=== PATIENT | female | born 1965 | race Caucasian/White ===

== ENCOUNTER → 2019-09-07 | Outpatient (CLI) | payer BC ==
--- NOTE | 2019-09-10 10:10 | MM ---
Reason for exam: screening (asymptomatic). Last mammogram was performed 1 year and 2 months ago. History: Patient is postmenopausal and is nulliparous. Physical Findings: A clinical breast exam by your physician is recommended on an annual basis and results should be correlated with mammographic findings. MG Screening Mammo w CAD Bilateral CC and MLO view(s) were taken. Prior study comparison: June 29, 2018, mammogram. April 21, 2017, mammogram. December 21, 2013, bilateral MG screening mammo w CAD. December 08, 2012, bilateral digital screening mammo w/CAD. The breast tissue is almost entirely fat. No significant changes when compared with prior studies. ASSESSMENT: Benign, BI-RAD 2 RECOMMENDATION: Routine screening mammogram of both breasts in 1 year.
== END | disposition home or self-care (01) ==
LOC: RADMAMWWP 07:48
PROVIDERS: ATTEND Internal Medicine
DX: Z12.31 Encounter for screening mammogram for malignant neoplasm of breast (principal)
CPT/HCPCS: 77067

== ENCOUNTER → 2019-09-17 | Outpatient (CLI) | payer BC ==
[2019-09-17 07:41] LABS: Basophils % (A) 1 %; Eosinophils % (A) 1 %; HGB 13.9 gm/dL (11.4-16.0); Lymphocytes # (A) 1.6 k/uL (1.0-4.8); Lymphocytes % (A) 36 %; MCH 30.2 pg (25.0-35.0); MCHC 31.6 g/dL (31.0-37.0); MCV 95.6 fL (80.0-100.0); Mean Platelet Volume 7.5; Monocytes # (A) 0.2 k/uL (0-1.0); Monocytes % (A) 4 %; Neutrophils # (A) 2.5 k/uL (1.3-7.7); Neutrophils % (A) 56 %; Platelet Count 132 k/uL (150-450); RDW 13.9 % (11.5-15.5); WBC 4.4 k/uL (3.8-10.6)
[2019-09-17 13:29] LABS: African American GFR (CKD) 113.8 (60.0-200.0); Albumin 4.3 g/dL (3.80-4.90); Albumin/Globulin Ratio 1.48 (1.60-3.17); BUN/Creat Ratio 28.57 Ratio (12.00-20.00); Calcium 9.7 mg/dL (8.7-10.3); Chol/HDL Ratio 2.78; Globulin 2.9 g/dL (1.6-3.3); LDL Cholesterol,Calculated 58.2 mg/dL (0.0-131.0); Non-African American GFR(CKD) 98.2 (60.0-200.0); Potassium 4.3 mmol/L (3.5-5.5); Total Bilirubin 0.6 mg/dL (0.3-1.2); Total Protein 7.2 g/dL (6.2-8.2); VLDL Calculation 28.8 mg/dL (5.00-40.00)
== END | disposition home or self-care (01) ==
LOC: LABWHC1 07:02
PROVIDERS: ATTEND Internal Medicine
DX: E78.2 Mixed hyperlipidemia (principal); I10 Essential (primary) hypertension; E11.65 Type 2 diabetes mellitus with hyperglycemia
CPT/HCPCS: 36415; 80053; 80061; 83036; 84443; 85025

== ENCOUNTER → 2019-12-19 | Outpatient (CLI) | payer BC | END | disposition home or self-care (01) | LOC: LABWHC1 15:42 | PROVIDERS: ATTEND Internal Medicine | DX: Z20.828 Contact with and (suspected) exposure to other viral communicable diseases (principal) | CPT/HCPCS: U0003; C9803 ==

== ENCOUNTER → 2020-04-28 | Outpatient (CLI) | payer OTHER ==
[2020-04-28 10:34] LABS: Basophils # (A) 0.01 X 10*3/uL (0.00-0.10); Basophils % (A) 0.3 %; Eosinophils # (A) 0.02 X 10*3/uL (0.04-0.35); Eosinophils % (A) 0.5 %; HCT 38.3 % (37.2-46.3); HGB 12.5 g/dL (12.0-15.0); Lymphocytes # (A) 1.25 X 10*3/uL (0.90-5.00); Lymphocytes % (A) 32.7 %; MCH 30.9 pg (27.0-32.0); MCHC 32.6 g/dL (32.0-37.0); MCV 94.8 fL (80.0-97.0); Monocytes # (A) 0.33 X 10*3/uL (0.20-1.00); Monocytes % (A) 8.6 %; Neutrophils # (A) 2.21 X 10*3/uL (1.80-7.70); Neutrophils % (A) 57.9 %; Platelet Count 134 X 10*3/uL (140-440); RBC 4.04 X 10*6/uL (4.10-5.20); RDW 13.3 % (11.5-14.5); WBC 3.82 X 10*3/uL (4.50-10.00)
[2020-04-28 11:00] LABS: African American GFR (CKD) 113.8 (60.0-200.0); Albumin 4.2 g/dL (3.80-4.90); Albumin/Globulin Ratio 1.68 (1.60-3.17); Anion Gap 6.3 mmol/L (4.00-12.00); Calcium 9.3 mg/dL (8.7-10.3); Carbon Dioxide 26.7 mmol/L (21.6-31.8); Chol/HDL Ratio 2.93; Globulin 2.5 g/dL (1.6-3.3); LDL Cholesterol,Calculated 37.2 mg/dL (0.0-131.0); Non-African American GFR(CKD) 98.2 (60.0-200.0); Potassium 4.3 mmol/L (3.5-5.5); Total Bilirubin 0.6 mg/dL (0.3-1.2); Total Protein 6.7 g/dL (6.2-8.2); VLDL Calculation 43.8 mg/dL (5.00-40.00)
[2020-04-28 16:25] LABS: Urine Creatinine 232.6 mg/dL
== END | disposition home or self-care (01) ==
LOC: LABWHC1 07:01
PROVIDERS: ATTEND Internal Medicine
DX: Z00.00 Encounter for general adult medical examination without abnormal findings (principal); E11.65 Type 2 diabetes mellitus with hyperglycemia; E78.2 Mixed hyperlipidemia; I21.19 ST elevation (STEMI) myocardial infarction involving other coronary artery of inferior wall
CPT/HCPCS: 36415; 80053; 80061; 82043; 82570; 83036; 84443; 84484; 85025

== ENCOUNTER → 2020-05-09 | Outpatient (CLI) | payer OTHER ==
[~2020-05-09] MED LIST: REGADENOSON 0.4 MG/5 ML SYRINGE IV PRN
--- NOTE | 2020-05-09 12:28 | NM ---
EXAMINATION TYPE: NM stress lexiscan cardiolite DATE OF EXAM: 05/09/2020 COMPARISON: NONE HISTORY: Inferior myocardial infarction per order. Abnormal EKG. History of diabetes and hypercholest erolemia. TECHNIQUE: After the intravenous administration of 10.5 mCi Tc 99m Sestamibi - Cardiolite resting SP ECT images acquired 45 minutes post injection. The patient received 0.4mg Lexiscan, 26.3 mCi Tc 99m Sestamibi - Stress images obtained [address] injection FINDINGS: Review of stress and rest SPECT images demonstrates poor uptake involving the anterior left ventricul ar wall on stress and rest images suspicious for old infarct with some septal wall extension. Improv ed radiotracer uptake is best seen in the inferior left ventricular wall. Gated analysis shows satisf actory wall motion with an estimated left ventricular ejection fraction of 67 %. IMPRESSION: Possible old anterior left ventricular wall infarct extending into septum. No reversible ischemia.
--- NOTE | 2020-05-09 17:46 | P.STRESS ---
- Stress Test Note Stress Test Results/Findings: Exam Performed: NM stress lexiscan cardiolite Exam Date: 05/09/20 Reason for Exam: ABN ECG Height: 5 ft 6 in Weight: 150 kg Protocol: LEXISCAN CARDIOLITE Stage: NA Duration of Exercise: NA Resting Heart Rate: 91 Resting Blood Pressure: 116/73 Maximum Achieved Heart Rate: 108 Maximum Achieved Blood Pressure: 136/58 85% PMHR: 141 100% PMHR: 166 METS: NA Technologist Comment: Stress Test Results/Findings: At baseline EKG showed normal sinus rhythm, normal axis, minimal 0.[address] elevation in 2, 3, aVF, V4 through V6 consistent with J-point elevation. Patient recieved IV infusion of Lexiscan 0.4mg and at peak infusion EKG showed no significant change from baseline. Conclusions: 1. Normal EKG response to Lexiscan infusion 2. Nuclear imaging to be reported separately.
== END ==
LOC: RADNMMAIN 07:50
PROVIDERS: ATTEND Internal Medicine
DX: R94.31 Abnormal electrocardiogram [ECG] [EKG] (principal); E11.9 Type 2 diabetes mellitus without complications; E78.00 Pure hypercholesterolemia, unspecified
CPT/HCPCS: 93017; 78452; A9500; J2785

== ENCOUNTER → 2021-01-10 | Outpatient (CLI) | payer OTHER ==
[2021-01-10 11:28] LABS: Basophils # (A) 0 X 10*3/uL (0.00-0.10); Basophils % (A) 0 %; Eosinophils # (A) 0.03 X 10*3/uL (0.04-0.35); HCT 41.2 % (37.2-46.3); HGB 13.4 g/dL (12.0-15.0); Lymphocytes # (A) 1.01 X 10*3/uL (0.90-5.00); Lymphocytes % (A) 34.2 %; MCH 30.9 pg (27.0-32.0); MCHC 32.5 g/dL (32.0-37.0); MCV 95.2 fL (80.0-97.0); Monocytes # (A) 0.17 X 10*3/uL (0.20-1.00); Monocytes % (A) 5.8 %; Neutrophils # (A) 1.74 X 10*3/uL (1.80-7.70); Platelet Count 132 X 10*3/uL (140-440); RBC 4.33 X 10*6/uL (4.10-5.20); RDW 13.5 % (11.5-14.5); WBC 2.95 X 10*3/uL (4.50-10.00)
[2021-01-10 12:10] LABS: ALT 34 U/L (8-44); AST 46 U/L (13-35); African American GFR (CKD) 117.1 (60.0-200.0); Albumin 4.1 g/dL (3.8-4.9); Albumin/Globulin Ratio 1.41 (1.60-3.17); Alkaline Phosphatase 52 U/L (41-126); BUN/Creat Ratio 22.58 Ratio (12.00-20.00); Blood Urea Nitrogen 14.2 mg/dL (9.0-27.0); Calcium 9.2 mg/dL (8.7-10.3); Carbon Dioxide 20.9 mmol/L (21.6-31.8); Chloride 102 mmol/L (96-109); Chol/HDL Ratio 2.96 Ratio; Globulin 2.9 g/dL (1.6-3.3); Glucose 216 mg/dL (70-110); LDL Cholesterol,Calculated 48.9 mg/dL (0.0-131.0); Magnesium 1.7 mg/dL (1.5-2.4); Potassium 4.1 mmol/L (3.5-5.5); Sodium 136 mmol/L (135-145); Total Protein 6.9 g/dL (6.2-8.2)
[2021-01-10 21:34] LABS: Microalbumin Creatinine Ratio <30 mg/g Creat (0-30)
== END | disposition home or self-care (01) ==
LOC: LABWHC1 08:18
PROVIDERS: ATTEND Internal Medicine
DX: I10 Essential (primary) hypertension (principal); E11.65 Type 2 diabetes mellitus with hyperglycemia; E78.2 Mixed hyperlipidemia
CPT/HCPCS: 36415; 80053; 80061; 82043; 82570; 83036; 83735; 84443; 85025

== ENCOUNTER → 2021-01-23 | Outpatient (CLI) | payer OTHER ==
--- NOTE | 2021-01-26 12:15 | MM ---
Reason for exam: screening (asymptomatic). Last mammogram was performed 1 year and 5 months ago. History: Patient is postmenopausal and is nulliparous. Physical Findings: A clinical breast exam by your physician is recommended on an annual basis and results should be correlated with mammographic findings. MG 3D Screening Mammo W/Cad Bilateral CC and MLO view(s) were taken. XCCL view(s) were taken of the left breast. Prior study comparison: September 07, 2019, bilateral MG screening mammo w CAD. June 29, 2018, mammogram. There are scattered fibroglandular densities. There is no discrete abnormality. ASSESSMENT: Negative, BI-RAD 1 RECOMMENDATION: Routine screening mammogram of both breasts in 1 year.
== END | disposition home or self-care (01) ==
LOC: RADMAMWWP 15:06
PROVIDERS: ATTEND Internal Medicine
DX: Z12.31 Encounter for screening mammogram for malignant neoplasm of breast (principal); Z78.0 Asymptomatic menopausal state
CPT/HCPCS: 77063; 77067

== ENCOUNTER → 2021-05-23 | Outpatient (CLI) | payer OTHER ==
[2021-05-23 11:57] LABS: Basophils # (A) 0.01 X 10*3/uL (0.00-0.10); Basophils % (A) 0.3 %; Eosinophils # (A) 0.03 X 10*3/uL (0.04-0.35); Eosinophils % (A) 0.8 %; HCT 39.9 % (37.2-46.3); HGB 12.7 g/dL (12.0-15.0); Immature Grans, Automated 0.3 %; Lymphocytes # (A) 1.12 X 10*3/uL (0.90-5.00); Lymphocytes % (A) 30.9 %; MCH 31.1 pg (27.0-32.0); MCHC 31.8 g/dL (32.0-37.0); MCV 97.6 fL (80.0-97.0); Mean Platelet Volume 9.9 fL (9.5-12.2); Monocytes # (A) 0.24 X 10*3/uL (0.20-1.00); Monocytes % (A) 6.6 %; NRBC Per 100 WBC 0 /100 WBCS (0.0-0.0); Neutrophils # (A) 2.22 X 10*3/uL (1.80-7.70); Neutrophils % (A) 61.1 %; Platelet Count 102 X 10*3/uL (140-440); RBC 4.09 X 10*6/uL (4.10-5.20); RDW 13.3 % (11.5-14.5); WBC 3.63 X 10*3/uL (4.50-10.00)
[2021-05-23 14:42] LABS: ALT 31 U/L (8-44); AST 36 U/L (13-35); African American GFR (CKD) 118.1 (60.0-200.0); Albumin/Globulin Ratio 1.44 (1.60-3.17); Alkaline Phosphatase 41 U/L (41-126); BUN/Creat Ratio 26.43 Ratio (12.00-20.00); Blood Urea Nitrogen 16.2 mg/dL (9.0-27.0); Calcium 8.9 mg/dL (8.7-10.3); Carbon Dioxide 16.4 mmol/L (20.0-27.5); Chloride 99 mmol/L (96-109); Chol/HDL Ratio 2.93 Ratio; Ferritin 67.9 ng/mL (10.0-291.0); Globulin 2.8 g/dL (1.6-3.3); Glucose 182 mg/dL (70-110); Iron 65 ug/dL (50-170); LDL Cholesterol,Calculated 55.3 mg/dL (0.0-131.0); Magnesium 1.9 mg/dL (1.5-2.4); Non-African American GFR(CKD) 101.9 (60.0-200.0); Sodium 131 mmol/L (135-145); Total Iron Binding Capacity 393 ug/dL (228-460); Total Protein 6.8 g/dL (6.2-8.2)
[2021-05-24 07:48] LABS: Appearance,Urine Turbid (Clear); Bacteria,Urine 1+ /HPF (None Seen); Bilirubin,Urine Negative (Negative); Blood,Urine Negative (Negative); Calcium Oxalate Crystals,Urine Present /LPF (None Seen); Color,Urine Dark Yellow (Yellow); Ketones,Urine Trace mg/dL (Negative); Nitrite,Urine Negative (Negative); Specific Gravity,Urine 1.033 (1.001-1.030)
== END | disposition home or self-care (01) ==
LOC: LABWHC1 08:00
PROVIDERS: ATTEND Internal Medicine
DX: I10 Essential (primary) hypertension (principal); E78.2 Mixed hyperlipidemia; E11.65 Type 2 diabetes mellitus with hyperglycemia; D50.0 Iron deficiency anemia secondary to blood loss (chronic)
CPT/HCPCS: 36415; 80053; 80061; 81001; 82043; 82570; 82607; 82728; 82746; 83036; 83540; 83550; 83735; 84439; 84443; 85025

== ENCOUNTER → 2021-10-24 | Outpatient (CLI) | payer OTHER ==
[2021-10-24 11:47] LABS: Basophils # (A) 0.01 X 10*3/uL (0.00-0.10); Basophils % (A) 0.3 %; Eosinophils # (A) 0.02 X 10*3/uL (0.04-0.35); Eosinophils % (A) 0.6 %; HCT 39.5 % (37.2-46.3); Immature Grans, Automated 0 %; Lymphocytes # (A) 1.29 X 10*3/uL (0.90-5.00); Lymphocytes % (A) 35.5 %; MCH 31.3 pg (27.0-32.0); MCHC 32.9 g/dL (32.0-37.0); MCV 95.2 fL (80.0-97.0); Mean Platelet Volume 9.9 fL (9.5-12.2); Monocytes # (A) 0.21 X 10*3/uL (0.20-1.00); Monocytes % (A) 5.8 %; NRBC Per 100 WBC 0 /100 WBCS (0.0-0.0); Neutrophils % (A) 57.8 %; Platelet Count 111 X 10*3/uL (140-440); RBC 4.15 X 10*6/uL (4.10-5.20); RDW 13.2 % (11.5-14.5); WBC 3.63 X 10*3/uL (4.50-10.00)
[2021-10-24 12:00] LABS: ALT 35 U/L (8-44); AST 38 U/L (13-35); African American GFR (CKD) 119.9 (60.0-200.0); Albumin 4.3 g/dL (3.8-4.9); Albumin/Globulin Ratio 1.57 (1.60-3.17); Alkaline Phosphatase 45 U/L (41-126); BUN/Creat Ratio 20.59 Ratio (12.00-20.00); Blood Urea Nitrogen 11.8 mg/dL (9.0-27.0); Calcium 9.5 mg/dL (8.7-10.3); Carbon Dioxide 23.9 mmol/L (20.0-27.5); Chloride 105 mmol/L (96-109); Globulin 2.8 g/dL (1.6-3.3); Glucose 89 mg/dL (70-110); Magnesium 1.9 mg/dL (1.5-2.4); Non-African American GFR(CKD) 103.5 (60.0-200.0); Potassium 4.1 mmol/L (3.5-5.5); Sodium 141 mmol/L (135-145); Total Protein 7.1 g/dL (6.2-8.2)
[2021-10-24 12:01] LABS: Chol/HDL Ratio 2.75 Ratio; LDL Cholesterol,Calculated 50.9 mg/dL (0.0-131.0)
[2021-10-24 12:43] LABS: Microalbumin Creatinine Ratio <30 mg/g Creat (0-30); Urine Creatinine 58.8 mg/dL (28.0-217.0)
== END | disposition home or self-care (01) ==
LOC: LABWHC1 08:21
PROVIDERS: ATTEND Internal Medicine
DX: I10 Essential (primary) hypertension (principal); E11.9 Type 2 diabetes mellitus without complications; E78.2 Mixed hyperlipidemia
CPT/HCPCS: 36415; 80053; 80061; 82043; 82570; 83036; 83735; 84439; 84443; 85025

== ENCOUNTER 2021-11-24 06:56 | Day surgery (SDC) | payer OTHER ==
[2021-11-20 12:26] VITALS: BMI 47.0
[~2021-11-24 06:56] MED LIST changes: +LACTATED RINGERS 1,000 ML IV SCH; -REGADENOSON 0.4 MG/5 ML SYRINGE IV PRN
[2021-11-24] MEDS ORDERED: ONDANSETRON 4 MG/2 ML VIAL IVP PRN (07:00)
[2021-11-24 07:22] VITALS: TEMP 98.7
[2021-11-24 07:38] LABS: Glucose,Whole Blood 303 mg/dL (70-110)
[2021-11-24] MEDS ORDERED: LACTATED RINGERS 1,000 ML IV ONE (07:39)
[2021-11-24] MEDS ORDERED: INSULIN ASPART (NovoLOG) 100 UNIT/ML VIAL SQ ONE (07:49)
[2021-11-24] MEDS ORDERED: MIDAZOLAM 2 MG/2 ML VIAL IVP ONE (07:49)
[2021-11-24] MEDS ORDERED: LIDOCAINE 2% INJ 20 MG/ML (2 ML VIAL) ONE (08:06)
[2021-11-24] MEDS ORDERED: PROPOFOL 10 MG/ML 20 ML VIAL IV ONE (08:06)
--- NOTE | 2021-11-24 08:10 | P.GSHP ---
History of Present Illness H&P Date: 11/24/21 Chief Complaint: Colon polyps 56-year-old female here today for colonoscopy. Last colonoscopy 3 years ago. No bowel complaints. His diverticulitis. Patient had a previous sigmoid resection for diverticulitis. Past Medical History Past Medical History: Diabetes Mellitus, Supraventricular Tachycardia (SVT) Additional Past Medical History / Comment(s): diverticulitis, pancreatitis, lisinopril for kidney protection History of Any Multi-Drug Resistant Organisms: None Reported Past Surgical History: Back Surgery, Bowel Resection, Cholecystectomy Additional Past Surgical History / Comment(s): temporary colostomy with reversal Past Anesthesia/Blood Transfusion Reactions: No Reported Reaction Past Psychological History: No Psychological Hx Reported Smoking Status: Never smoker Past Alcohol Use History: None Reported Past Drug Use History: None Reported Medications and Allergies Home Medications Medication Instructions Recorded Confirmed Type Pantoprazole Sodium [Protonix] 40 mg PO BID 09/10/13 11/24/21 History lisinopriL [Zestril] 20 mg PO DAILY 09/10/13 11/24/21 History metFORMIN HCL [Glucophage] 1,000 mg PO BID 09/10/13 11/24/21 History ALPRAZolam [Xanax] 0.5 mg PO DAILY 12/26/13 11/20/21 History Acetaminophen [Tylenol Extra 1,500 mg PO BID 11/20/21 11/24/21 History Strength] Ascorbic Acid [Vitamin C] 500 mg PO DAILY 11/20/21 11/24/21 History Cetirizine HCl [Zyrtec] 10 mg PO DAILY 11/20/21 11/24/21 History Insulin Regular, Human [humulin R 60 unit SQ W/SUPPER 11/20/21 11/24/21 History U-500 Kwikpen] Insulin Regular, Human [humulin R 140 unit SQ QAM 11/20/21 11/24/21 History U-500 Kwikpen] Magnesium 400 mg PO DAILY 11/20/21 11/24/21 History Metoprolol Tartrate [Lopressor] 50 mg PO DAILY 11/20/21 11/24/21 History Multivitamins, Thera [Multivitamin 1 tab PO DAILY 11/20/21 11/24/21 History (formulary)] Rosuvastatin [Crestor] 20 mg PO DAILY 11/20/21 11/24/21 History Ubidecarenone [Co Q-10] 200 mg PO DAILY 11/20/21 11/24/21 History Allergies Allergy/AdvReac Type Severity Reaction Status Date / Time adhesive Allergy Rash/Hives Verified 11/24/21 07:22 methylprednisolone Allergy Rash/Hives Verified 11/24/21 07:22 [From Medrol] Surgical - Exam Vital Signs Temp Pulse Resp BP Pulse Ox 98.7 F 127 H 16 126/83 97 11/24/21 07:20 11/24/21 07:20 11/24/21 07:20 11/24/21 07:20 11/24/21 07:20 Physical exam: General: Well-developed, well-nourished HEENT: Normocephalic, sclerae nonicteric Abdomen: Nontender, nondistended Extremities: No edema Neuro: Alert and oriented Results - Labs Abnormal Lab Results - Last 24 Hours (Table) 11/24/21 Range/Units 07:37 POC Glucose (mg/dL) 303 H (70-110) mg/dL Assessment and Plan (1) Colon polyp Narrative/Plan: Will proceed with colonoscopy at this time Current Visit: Yes Status: Acute Code(s): K63.5 - POLYP OF COLON SNOMED Code(s): 12150125
--- NOTE | 2021-11-24 08:21 | P.PCN ---
Date of Procedure: 11/24/21 Procedure(s) Performed: PREOPERATIVE DIAGNOSIS: History of colon polyps, family history of colon cancer POSTOPERATIVE DIAGNOSIS: Poor prep, transverse colon polyp 2 PROCEDURE: Colonoscopy with snare polypectomy ANESTHESIA: MAC SURGEON: Fercho Luna M.D. SPECIMENS: Polyps ENDOSCOPIC PROCEDURE: The patient was placed on the endoscopy table in the left decubitus position. The Olympus colonoscope was inserted into the anus and passed under direct visualization to the base of the cecum. The appendiceal orifice was visualized. From that point the scope was slowly withdrawn inspecting all surfaces carefully. There were no neoplastic inflammatory or polypoid lesions throughout the cecum or ascending colon. In the transverse colon 2 small polyps were removed using the snare cautery technique. The remainder the transverse descending and rectum appeared normal. The previous anastomosis was patent. Again there was noted to be a bridge of mucosa splitting the lumen of the rectum from the previous sigmoid resection. The patient's prep was extremely poor and most mucosal surfaces could not be visualized. Digital rectal examination was normal. The patient was taken to the recovery room in stable condition per anesthesia guidelines. RECOMMENDATIONS: Await biopsy results. Repeat colonoscopy 6-12 months.
[2021-11-24 08:46] VITALS: RESP 18
[2021-11-24 09:12] VITALS: BP 129/81; PULSE 106
== END 2021-11-24 09:12 | disposition home or self-care (01) ==
LOC: ORWHC2ENDO 06:56
PROVIDERS: ATTEND Surgery
DX: Z12.11 Encounter for screening for malignant neoplasm of colon (principal); D12.3 Benign neoplasm of transverse colon; K57.32 Diverticulitis of large intestine without perforation or abscess without bleeding; E11.9 Type 2 diabetes mellitus without complications; I47.1 Supraventricular tachycardia; Z80.0 Family history of malignant neoplasm of digestive organs; Z86.010 Personal history of colon polyps; Z90.49 Acquired absence of other specified parts of digestive tract; Z98.890 Other specified postprocedural states; Z79.1 Long term (current) use of non-steroidal anti-inflammatories (NSAID); Z79.84 Long term (current) use of oral hypoglycemic drugs; Z79.4 Long term (current) use of insulin; Z88.8 Allergy status to other drugs, medicaments and biological substances; Z79.899 Other long term (current) drug therapy
CPT/HCPCS: 88305; 45385; J2250; J2704; J2001

== ENCOUNTER 2021-12-14 15:33 | Emergency (ER) | payer OTHER ==
[2021-12-14 15:52] VITALS: TEMP 98.2
[2021-12-14] MEDS ORDERED: HYDROmorphone 1 MG/ML 1 ML SYRINGE IM STA (16:16)
--- NOTE | 2021-12-14 16:18 | ED ---
General Adult HPI - General Chief complaint: Fall Stated complaint: rt leg/hip pain - fall Time Seen by Provider: 12/14/21 15:57 Source: patient Mode of arrival: wheelchair Limitations: no limitations - History of Present Illness Initial comments: Dictation was produced using [employer] dictation software. please excuse any grammatical, word or spelling errors. Chief Complaint: 56-year-old female presents emergency department for right hip pain. History of Present Illness: She is a 56-year-old female she was taking a shower this morning she bent over and stood up really quickly causing her to get dizzy. She fell sideways landing on her right hip. Patient states that she has extreme pain to her right hip. She was able to stand and bear some weight though with significant pain. Patient is noticing a bruise over her right lateral hip. Patient has no other complaints. The ROS documented in this emergency department record has been reviewed and confirmed by me. Those systems with pertinent positive or negative responses have been documented in the HPI. All other systems are other negative and/or noncontributory. PHYSICAL EXAM: General Impression: Alert and oriented x3, not in acute distress HEENT: Normocephalic atraumatic, extra-ocular movements intact, pupils equal and reactive to light bilaterally, mucous membranes moist. Cardiovascular: Heart regular rate and rhythm Chest: Able to complete full sentences, no retractions, no tachypnea Musculoskeletal: Pulses present and equal in all extremities, no peripheral edema Right lower extremity: Mild ecchymoses over the right greater trochanteric, no leg length discrepancy, neurovascularly intact in the right distal extremity Motor: no focal deficits noted Neurological: CN II-XII grossly intact, no focal motor or sensory deficits noted Skin: Intact with no visualized rashes Psych: Normal affect and mood ED course: 56-year-old female presents with right hip pain after fall. Vital signs upon arrival are within acceptable limits. X-rays unremarkable. Patient given oral analgesics. Advised follow-up with primary care doctor. Click or presentation consistent with hip contusion. - Related Data Home Medications Medication Instructions Recorded Confirmed Pantoprazole Sodium [Protonix] 40 mg PO BID 09/10/13 11/24/21 lisinopriL [Zestril] 20 mg PO DAILY 09/10/13 11/24/21 metFORMIN HCL [Glucophage] 1,000 mg PO BID 09/10/13 11/24/21 ALPRAZolam [Xanax] 0.5 mg PO DAILY 12/26/13 11/20/21 Acetaminophen [Tylenol Extra 1,500 mg PO BID 11/20/21 11/24/21 Strength] Ascorbic Acid [Vitamin C] 500 mg PO DAILY 11/20/21 11/24/21 Cetirizine HCl [Zyrtec] 10 mg PO DAILY 11/20/21 11/24/21 Insulin Regular, Human [humulin R 60 unit SQ W/SUPPER 11/20/21 11/24/21 U-500 Kwikpen] Insulin Regular, Human [humulin R 140 unit SQ QAM 11/20/21 11/24/21 U-500 Kwikpen] Magnesium 400 mg PO DAILY 11/20/21 11/24/21 Metoprolol Tartrate [Lopressor] 50 mg PO DAILY 11/20/21 11/24/21 Multivitamins, Thera [Multivitamin 1 tab PO DAILY 11/20/21 11/24/21 (formulary)] Rosuvastatin [Crestor] 20 mg PO DAILY 11/20/21 11/24/21 Ubidecarenone [Co Q-10] 200 mg PO DAILY 11/20/21 11/24/21 Previous Rx's Medication Instructions Recorded oxyCODONE-APAP 7.5-325MG [Percocet 1 tab PO Q6HR PRN 3 Days #12 tab 12/14/21 7.5-325 mg] Allergies Allergy/AdvReac Type Severity Reaction Status Date / Time adhesive Allergy Rash/Hives Verified 12/14/21 15:52 methylprednisolone Allergy Rash/Hives Verified 12/14/21 15:52 [From Medrol] Review of Systems ROS Statement: Those systems with pertinent positive or pertinent negative responses have been documented in the HPI. ROS Other: All systems not noted in ROS Statement are negative. Past Medical History Past Medical History: Diabetes Mellitus Additional Past Medical History / Comment(s): diverticulitis, pancreatitis History of Any Multi-Drug Resistant Organisms: None Reported Past Surgical History: Back Surgery, Cholecystectomy Additional Past Surgical History / Comment(s): temporary colostomy with reversal Past Anesthesia/Blood Transfusion Reactions: No Reported Reaction Past Psychological History: No Psychological Hx Reported Smoking Status: Never smoker Past Alcohol Use History: None Reported Past Drug Use History: None Reported General Exam Limitations: no limitations Course Vital Signs 12/14/21 15:49 Temperature 98.2 F Pulse Rate 96 Respiratory 16 Rate Blood Pressure 139/85 O2 Sat by Pulse 97 Oximetry Disposition Clinical Impression: Contusion, hip Disposition: HOME SELF-CARE Condition: Good Instructions (If sedation given, give patient instructions): Hip Contusion (ED) Prescriptions: oxyCODONE-APAP 7.5-325MG [Percocet 7.5-325 mg] 1 tab PO Q6HR PRN 3 Days #12 tab PRN Reason: Pain Is patient prescribed a controlled substance at d/c from ED?: Yes If prescribed controlled substance>3 days was MAPS reviewed?: Prescribed <3 Days Referrals: Bradley Hardin MD [Primary Care Provider] - 1-2 days Time of Disposition: 17:09
--- NOTE | 2021-12-14 16:39 | XR ---
EXAMINATION TYPE: XR Hip Complete RT DATE OF EXAM: 12/14/2021 COMPARISON: NONE HISTORY: Fall. Pain TECHNIQUE: 2 views FINDINGS: I see no fracture nor dislocation. Hip joint space is fairly normal. Sacroiliac joint is in tact. Proximal femur is intact. IMPRESSION: Negative right hip exam. No fracture.
[2021-12-14 18:13] VITALS: BP 153/78; PULSE 95; RESP 20
== END 2021-12-14 18:13 | disposition home or self-care (01) ==
LOC: EC 15:33
DX: S70.01XA Contusion of right hip, initial encounter (principal); E11.9 Type 2 diabetes mellitus without complications; Z79.84 Long term (current) use of oral hypoglycemic drugs; Z88.8 Allergy status to other drugs, medicaments and biological substances; W19.XXXA Unspecified fall, initial encounter
CPT/HCPCS: 73502; 99284; 96372; J1170

== ENCOUNTER → 2022-02-09 | Outpatient (CLI) | payer OTHER ==
--- NOTE | 2022-02-10 18:07 | MM ---
Reason for Exam: Screening (asymptomatic). Last screening mammogram was performed 12 month(s) ago. Patient History: Menarche at age 12. Patient has no children. Postmenopausal. Risk Values: Lyly 5 year model risk: 1.4%. NCI Lifetime model risk: 8.9%. Prior Study Comparison: 06/29/2018 Screening Mammogram, Unknown. 09/07/2019 Bilateral Screening Mammogram, [facility]. 01/23/2021 Bilateral Screening Mammogram, [facility]. Tissue Density: There are scattered fibroglandular densities. Findings: Analyzed By CAD. Abdomen appears symmetrical and stable. No significant interval change is evident. No suspicious groups of microcalcifications, spiculated or lobular masses, architectural distortion or other secondary signs of malignancy are mammographically apparent. Overall Assessment: Benign, BI-RAD 2 Management: Screening Mammogram of both breasts in 1 year. A negative mammogram report should not preclude additional follow up of suspicious palpable abnormalities. Patient should continue monthly self breast exam. A clinical breast exam by your physician is recommended on an annual basis and results should be correlated with mammographic findings. Electronically signed and approved by: Vipul Anne D.O. Radiologis
== END | disposition home or self-care (01) ==
LOC: RADMAMWWP 15:56
PROVIDERS: ATTEND Obstetrics & Gynecology
DX: Z12.31 Encounter for screening mammogram for malignant neoplasm of breast (principal); Z78.0 Asymptomatic menopausal state
CPT/HCPCS: 77067

== ENCOUNTER 2022-07-06 07:16 | Day surgery (SDC) | payer OTHER ==
[2022-07-02 12:09] VITALS: BMI 47.0
[~2022-07-06 07:16] MED LIST changes: +LIDOCAINE 1% (10MG/ML) FOR IV START INTRADERMA PRN
[2022-07-06 07:46] VITALS: TEMP 97.8
[2022-07-06 07:49] LABS: Glucose,Whole Blood 188 mg/dL (70-110)
[2022-07-06] MEDS ORDERED: LIDOCAINE 2% INJ 20 MG/ML (2 ML VIAL) ONE (07:52)
[2022-07-06] MEDS ORDERED: PROPOFOL 10 MG/ML 20 ML VIAL IV ONE (07:52)
--- NOTE | 2022-07-06 08:08 | P.GSHP ---
History of Present Illness H&P Date: 07/06/22 Chief Complaint: Colon cancer screening, history of polyps 66 female here for colonoscopy. Patient with history of colon polyps. Family history of colon cancer. He underwent colonoscopy last November and polyps were found. Prep was poor and short-term follow-up is advised. Past Medical History Past Medical History: Diabetes Mellitus, GERD/Reflux, Hyperlipidemia Additional Past Medical History / Comment(s): diverticulitis, pancreatitis, ON B/P RX FOR KIDNEYS, ELEVATED HR History of Any Multi-Drug Resistant Organisms: None Reported Past Surgical History: Back Surgery, Bowel Resection, Cholecystectomy Additional Past Surgical History / Comment(s): temporary colostomy with reversal. COLONOSCCOPY. LT TUBE AND OVARY REMOVED Past Anesthesia/Blood Transfusion Reactions: No Reported Reaction Smoking Status: Never smoker - Past Family History Mother Family Medical History: Cancer, Deep Vein Thrombosis (DVT) Additional Family Medical History / Comment(s): COLON. DVT POST TOTAL KNEE Medications and Allergies Home Medications Medication Instructions Recorded Confirmed Type Pantoprazole Sodium [Protonix] 40 mg PO BID 09/10/13 07/02/22 History lisinopriL [Zestril] 20 mg PO DAILY 09/10/13 07/02/22 History metFORMIN HCL [Glucophage] 1,000 mg PO BID 09/10/13 07/02/22 History ALPRAZolam [Xanax] 0.5 mg PO DAILY 12/26/13 07/02/22 History Acetaminophen [Tylenol Extra 1,500 mg PO BID 11/20/21 07/02/22 History Strength] Ascorbic Acid [Vitamin C] 500 mg PO DAILY 11/20/21 07/02/22 History Cetirizine HCl [Zyrtec] 10 mg PO DAILY 11/20/21 07/02/22 History Insulin Regular, Human [humulin R 60 unit SQ W/SUPPER 11/20/21 07/02/22 History U-500 Kwikpen] Insulin Regular, Human [humulin R 140 unit SQ QAM 11/20/21 07/02/22 History U-500 Kwikpen] Magnesium 400 mg PO DAILY 11/20/21 07/02/22 History Metoprolol Tartrate [Lopressor] 50 mg PO BID 11/20/21 07/02/22 History Multivitamins, Thera [Multivitamin 1 tab PO DAILY 11/20/21 07/02/22 History (formulary)] Rosuvastatin [Crestor] 20 mg PO W/SUPPER 11/20/21 07/02/22 History Ubidecarenone [Co Q-10] 200 mg PO DAILY 11/20/21 07/02/22 History Lidocaine 5% Patch [Lidoderm 5% 1 patch TOPICAL DAILY PRN 14 Days 05/03/22 07/02/22 Rx Patch] #14 patch Gabapentin 300 mg PO BID 07/02/22 07/02/22 History HYDROcodone/APAP 10-325MG [Sperry 1 tab PO Q6HR PRN 07/02/22 07/02/22 History 10-325] methocarbamoL [Methocarbamol] 500 mg PO BID 07/02/22 07/02/22 History Allergies Allergy/AdvReac Type Severity Reaction Status Date / Time adhesive Allergy Rash/Hives Verified 07/06/22 07:36 methylprednisolone Allergy Rash/Hives Verified 07/06/22 07:36 [From Medrol] Surgical - Exam Vital Signs Temp Pulse Resp BP Pulse Ox 97.8 F 90 18 140/68 94 L 07/06/22 07:45 07/06/22 07:45 07/06/22 07:45 07/06/22 07:45 07/06/22 07:45 Physical exam: General: Well-developed, well-nourished HEENT: Normocephalic, sclerae nonicteric Abdomen: Nontender, nondistended Extremities: No edema Neuro: Alert and oriented Results - Labs Abnormal Lab Results - Last 24 Hours (Table) 07/06/22 Range/Units 07:47 POC Glucose (mg/dL) 188 H (70-110) mg/dL Assessment and Plan (1) Colon cancer screening Narrative/Plan: Will proceed with colonoscopy at this time Current Visit: Yes Status: Acute Code(s): Z12.11 - ENCOUNTER FOR SCREENING FOR MALIGNANT NEOPLASM OF COLON SNOMED Code(s): 775869203
--- NOTE | 2022-07-06 08:10 | P.PCN ---
Date of Procedure: 07/06/22 Procedure(s) Performed: PREOPERATIVE DIAGNOSIS: Colon cancer screening with history of polyps and family history of colon cancer POSTOPERATIVE DIAGNOSIS: Ascending colon polyp PROCEDURE: Colonoscopy with snare polypectomy ANESTHESIA: MAC SURGEON: Fercho Luna M.D. SPECIMENS: Polyp ENDOSCOPIC PROCEDURE: The patient was placed on the endoscopy table in the left decubitus position. The Olympus colonoscope was inserted into the anus and passed under direct visualization to the base of the cecum. The appendiceal orifice was visualized. From that point the scope was slowly withdrawn inspecting all surfaces carefully. There were no neoplastic inflammatory or polypoid lesions throughout the cecum. In the ascending colon a small polyp was seen and removed using the snare with cautery technique. The remainder of the ascending transverse descending and rectum appeared normal. The patient's prep was again suboptimal with multiple areas of mucosa covered with thicker stool that could not be irrigated. There was no visible diverticulosis. The previous anastomosis was widely patent. There was a band of mucosa crossing the lumen at the anastomotic site. This was non-obstructive. Digital rectal examination was normal. The patient was taken to the recovery room in stable condition per [facility] guidelines. RECOMMENDATIONS: Await biopsy results. Repeat colonoscopy 1-2 years given the history of polyps and family history of colon cancer along with today's poor prep.
[2022-07-06 08:22] VITALS: RESP 16
[2022-07-06 08:28] VITALS: BP 117/76; PULSE 86
== END 2022-07-06 08:52 | disposition home or self-care (01) ==
LOC: ORWHC2ENDO 07:16
PROVIDERS: ATTEND Surgery
DX: Z12.11 Encounter for screening for malignant neoplasm of colon (principal); D12.2 Benign neoplasm of ascending colon; Z80.0 Family history of malignant neoplasm of digestive organs; Z98.0 Intestinal bypass and anastomosis status; E11.9 Type 2 diabetes mellitus without complications; E78.5 Hyperlipidemia, unspecified; K21.9 Gastro-esophageal reflux disease without esophagitis; F41.9 Anxiety disorder, unspecified; Z90.49 Acquired absence of other specified parts of digestive tract; Z79.84 Long term (current) use of oral hypoglycemic drugs; Z79.899 Other long term (current) drug therapy; Z79.4 Long term (current) use of insulin; Z91.048 Other nonmedicinal substance allergy status; Z88.8 Allergy status to other drugs, medicaments and biological substances
CPT/HCPCS: 88305; 45385; J2704; J2001

== ENCOUNTER → 2022-07-10 | Outpatient (CLI) | payer OTHER ==
[2022-07-10 13:27] LABS: Basophils # (A) 0.01 X 10*3/uL (0.00-0.10); Basophils % (A) 0.3 %; Eosinophils # (A) 0.02 X 10*3/uL (0.04-0.35); Eosinophils % (A) 0.6 %; HGB 12.9 g/dL (12.0-15.0); Immature Grans, Automated 0 %; Lymphocytes # (A) 1.15 X 10*3/uL (0.90-5.00); Lymphocytes % (A) 33.6 %; MCH 30.4 pg (27.0-32.0); MCHC 31.5 g/dL (32.0-37.0); MCV 96.5 fL (80.0-97.0); Mean Platelet Volume 10.5 fL (9.5-12.2); Monocytes # (A) 0.19 X 10*3/uL (0.20-1.00); Monocytes % (A) 5.6 %; NRBC Per 100 WBC 0 /100 WBCS (0.0-0.0); Neutrophils # (A) 2.05 X 10*3/uL (1.80-7.70); Neutrophils % (A) 59.9 %; Platelet Count 111 X 10*3/uL (140-440); RBC 4.25 X 10*6/uL (4.10-5.20); RDW 13.6 % (11.5-14.5); WBC 3.42 X 10*3/uL (4.50-10.00)
[2022-07-10 13:43] LABS: ALT 26 U/L (8-44); AST 31 U/L (13-35); African American GFR (CKD) 118.1 (60.0-200.0); Albumin 4.2 g/dL (3.8-4.9); Albumin/Globulin Ratio 1.62 (1.60-3.17); Alkaline Phosphatase 43 U/L (41-126); BUN/Creat Ratio 23.67 Ratio (12.00-20.00); Blood Urea Nitrogen 14.2 mg/dL (9.0-27.0); Calcium 9.5 mg/dL (8.7-10.3); Carbon Dioxide 23.3 mmol/L (20.0-27.5); Chloride 100 mmol/L (96-109); Chol/HDL Ratio 2.55 Ratio; Globulin 2.6 g/dL (1.6-3.3); Glucose 213 mg/dL (70-110); Magnesium 1.7 mg/dL (1.5-2.4); Non-African American GFR(CKD) 101.9 (60.0-200.0); Potassium 4.1 mmol/L (3.5-5.5); Sodium 136 mmol/L (135-145); Total Protein 6.8 g/dL (6.2-8.2); Uric Acid 3.3 mg/dL (2.9-7.7)
[2022-07-10 15:45] LABS: Appearance,Urine Clear (Clear); Bacteria,Urine None Seen /HPF (None Seen); Bilirubin,Urine Small (Negative); Blood,Urine Negative (Negative); Calcium Oxalate Crystals,Urine Present /LPF (None Seen); Color,Urine Dark Yellow (Yellow); Ketones,Urine Trace mg/dL (Negative); Nitrite,Urine Negative (Negative); Specific Gravity,Urine >1.035 (1.001-1.030)
== END | disposition home or self-care (01) ==
LOC: LABWHC1 08:17
PROVIDERS: ATTEND Internal Medicine
DX: I10 Essential (primary) hypertension (principal); E11.65 Type 2 diabetes mellitus with hyperglycemia; E78.2 Mixed hyperlipidemia
CPT/HCPCS: 36415; 80053; 80061; 81001; 82043; 82570; 83036; 83735; 84439; 84443; 84550; 85025

== ENCOUNTER → 2022-07-15 | Outpatient (CLI) | payer OTHER ==
[2022-07-15 12:31] VITALS: BP 139/83; PULSE 84; RESP 18; TEMP 98.6
--- NOTE | 2022-07-15 14:47 | P.PAINPG ---
PQRS Measure Charge Sheet Comment: HISTORY OF PRESENT ILLNESS: 57 yr old female as a referral from Dr Easley presents today w severe and chronic LBP secondary to DDD, spondylosis and facet arthropathy without myelopathy for evaluation. Pt states pain level is provoked at 10 /10 in intensity, constant, localized in the lower lumbar spine, sharp in character w shooting pain towards the BLEs. Pain is provoked by standing from a sitting position. Pain is alleviated by PT which she started this week, chiropractic treatments semi weekly x 2 wks in Mar 2022, medications (Robaxin, [place]), topical, repositioning and rest. PMH: DM II, GERD, Hyperlipidemia, Pancreatitis PSH: Colostomy w Reversal, Colonoscopy w Polypectomy (2022), Back Surgery, Bowel Resection, Cholecystectomy, Total Knee Surgery, L Oophorectomy/ L Salphingectomy SH: Negative x3 FH: Mo- DVT, CA. All: See list Meds: See list REVIEW OF ORGAN SYSTEMS: CONSTITUTIONAL: No fevers or chills. No recent weight loss. NEUROLOGICAL: + numbness and tingling along the distal extremities. No seizure disorders or headaches. MUSCULOSKELETAL: + pain PSYCHIATRIC: Denies current depression or suicidal thoughts. Physical Examinations : Constitutional : Cooperative , not in acute distress . Neurologic : Cranial nerve II to XII intact. No focal neurological deficits. Psychiatric : alert & oriented x 3. Matching mood & appropriate affect. Judgment & insight intact. Musculoskeletal : Cervical Spine Motor strength in the deltoid and biceps: Normal right side. Normal Left side Motor strength biceps and the wrist extensors: Normal right side . Normal left side Motor strength in the triceps muscle: Normal right side. Normal left side Deep tendon reflexes: Normal at the biceps. Normal at Brachioradialis. Normal at triceps Vertebral body tenderness to deep palpation over Cervical facet loading test: positive bilaterally Spurling test: positive bilaterally Neck distraction test: positive bilaterally Meeta sign: positive bilaterally Lumbar spine Motor strength lower extremities ,thigh and legs 5/5 Right side , 5/5 Left side Deep tendon reflexes : Normal Knee Jerk. Normal Ankle Jerk Vertebral body tenderness over L4 Lee Test positive Lumbar facet Loading Test: positive Right / positive Left Range of motion of the lumbar spine Flexion 30 degrees, extension 10 degrees Straight Leg Raise test: Left/ Right positive at 30 degrees Dinorah test: positive right / positive left. Severe tenderness over the Sacroiliac joint on the Right / Left sides Gaenslen test: positive bilaterally Seated flexion test: positive bilaterally. Sacral spine : Severe tenderness over the Sacroiliac joint: right side / left side Range of motion: Flexion of the lumbar spine <60 degrees Range of motion: Extension of the lumbar spine <20 degrees Gaenslen's Test positive Deo's Test positive Dinorah test: positive right side / left side Thigh Thrust Test Sacral Thrust Test Imaging: CT non contrast of the lumbar spine from 05/03/22 reviewed Assessment/ Plan : Lumbar stenosis, lumbar spondylosis Recommendation of EMMY L4-L5. May need a series of injections for optimal pain relief. Risks, benefits of procedure discussed and patient verbalized understanding. Admits to aspirin or anti- coagulant use or medical history of diabetes. Protocol for discontinuation/ continuation of medications randee procedure discussed. Minimal anesthesia provided, if clinically indicated, consisting of Versed and Fentanyl. All questions answered. I have spent greater than 30 minutes on patient care today. Dr Bai was available by phone for the evaluation of this patient. The time was used to review the medical records including relevant urine studies and Prescription history (MAPs), review of the available imaging, evaluation and examination of the patient, coordination of care with the medical staff and if applicable referring physicians, as well as creation of the medical record - Pain Location Bilateral Lower Back Non-Pharmacological Interventions: Chiropractic Treatment, Heat, Inactivity, Physical Therapy Pharmacological Interventions: Scheduled Medication, Topical Medication PQRS Narrative: Smoking Status Never smoker Home Medications: Ambulatory Orders Pantoprazole Sodium [Protonix] 40 mg PO BID 09/10/13 lisinopriL [Zestril] 20 mg PO DAILY 09/10/13 metFORMIN HCL [Glucophage] 1,000 mg PO BID 09/10/13 ALPRAZolam [Xanax] 0.5 mg PO DAILY 12/26/13 Acetaminophen [Tylenol Extra Strength] 1,500 mg PO BID 11/20/21 Ascorbic Acid [Vitamin C] 500 mg PO DAILY 11/20/21 Cetirizine HCl [Zyrtec] 10 mg PO DAILY 11/20/21 Insulin Regular, Human [humulin R U-500 Kwikpen] 60 unit SQ W/SUPPER 11/20/21 Insulin Regular, Human [humulin R U-500 Kwikpen] 140 unit SQ QAM 11/20/21 Magnesium 400 mg PO DAILY 11/20/21 Metoprolol Tartrate [Lopressor] 50 mg PO BID 11/20/21 Multivitamins, Thera [Multivitamin (formulary)] 1 tab PO DAILY 11/20/21 Rosuvastatin [Crestor] 20 mg PO W/SUPPER 11/20/21 Ubidecarenone [Co Q-10] 200 mg PO DAILY 11/20/21 Lidocaine 5% Patch [Lidoderm 5% Patch] 1 patch TOPICAL DAILY PRN 14 Days #14 patch 05/03/22 Gabapentin 300 mg PO BID 07/02/22 HYDROcodone/APAP 10-325MG [[place] 10-325] 1 tab PO Q6HR PRN 07/02/22 methocarbamoL [Methocarbamol] 500 mg PO BID 07/02/22 Controlled Substance Measures - Controlled Substance Measures Is patient prescribed a controlled substance at discharge?: No
== END ==
LOC: PNWHC3 08:59
PROVIDERS: ATTEND Specialist
DX: M47.816 Spondylosis without myelopathy or radiculopathy, lumbar region (principal); M48.061 Spinal stenosis, lumbar region without neurogenic claudication; E11.9 Type 2 diabetes mellitus without complications; K21.9 Gastro-esophageal reflux disease without esophagitis; E78.5 Hyperlipidemia, unspecified; Z79.84 Long term (current) use of oral hypoglycemic drugs; Z79.4 Long term (current) use of insulin; Z91.048 Other nonmedicinal substance allergy status; Z88.8 Allergy status to other drugs, medicaments and biological substances
CPT/HCPCS: 99211

== ENCOUNTER 2022-07-27 08:30 | Day surgery (SDC) | payer OTHER ==
[2022-07-27] MEDS ORDERED: LACTATED RINGERS 1,000 ML IV SCH (08:44)
[2022-07-27] MEDS ORDERED: LIDOCAINE 1% (10MG/ML) FOR IV START INTRADERMA PRN (08:44)
[2022-07-27 08:49] VITALS: RESP 16; TEMP 97.8
[2022-07-27 08:55] LABS: Glucose,Whole Blood 198 mg/dL (70-110)
[2022-07-27] MEDS ORDERED: methylPREDNISolone ACETATE 40 MG/ML 1 ML VIAL ONE (09:09)
[2022-07-27] MEDS ORDERED: fentaNYL (PF) 50 MCG/ML 2 ML AMP ONE (09:09)
[2022-07-27] MEDS ORDERED: MIDAZOLAM 2 MG/2 ML VIAL ONE (09:09)
[2022-07-27] MEDS ORDERED: IOPAMIDOL M200 10 ML VIAL ONE (09:09)
--- NOTE | 2022-07-27 09:17 | P.PCN ---
Date of Procedure: 07/27/22 Procedure(s) Performed: PREOPERATIVE DIAGNOSIS: 1- Lumbar Degenerative Disc Diseases 2-Lumbar spondylosis with Facet arthropathy without myelopathy. 3-lumbar spinal stenosis 4-failed back surgery syndrome lumbar area POSTOPERATIVE DIAGNOSIS: 1-lumbar degenerative disc disease. 2-lumbar spondylosis with facet arthropathy without myelopathy. 3-lumbar spinal stenosis. 4-failed back surgery syndrome lumbar area. PROCEDURE 1. Lumbar epidural steroid injection under fluoroscopic guidance at the L4-5 level. (Fluoroscopy imaging was available in radiology department) 2. Lumbar epidurogram. ANESTHESIA: moderate sedation with intravenous Versed 2 mg ,and fentanyle 100 Mcg Sedation start time : 908 Sedation end time : 912 EBL: Minimal PROCEDURE INDICATION: The patient with low back pain and radiculitis symptoms unresponsive to conservative treatment. Fluoroscopy was used to optimize visualization of the needle placement and to maximize safety. PROCEDURE DESCRIPTION / TECHNIQUE: The patient was seen and identified in the preoperative area. Risks, benefits, complications including but not limited to infections ,bleeding ,allergic reaction to the medications ,nerve damage and not complete pain releife , and alternatives were discussed with the patient. The patient agreed to proceed with the procedure and signed the consent. IV was started, and vital signs were stable. Patient was taken to the OR and time out was completed. The patient was placed in the prone position on procedure table and a pillow was placed under the abdomen to reduce lumbar lordosis. The lumbosacral area was prepped and draped in the usual sterile fashion.ere closely monitored during the procedure. Conscious sedation was used during the procedure to decrease patients anxiety. Vital signs was monitered during the entire procedure. Using anterior-posterior fluoroscopy, the L4-5interlaminar space was identified and the skin over this site was marked and then infiltrated with 1% lidocaine subcutaneously. Subsequently, a 20-gauge Tuohy epidural needle was inserted and advanced toward the epidural space using the ``Loss of resistance technique and guided by AP and lateral fluoroscopy. The correct needle position in the epidural space was verified with the injection of 2 mL of the water soluble contrast dye Isovue 200 contrast and observing an excellent epidurogram with the epidural spread of the dye, after negative aspiration for blood and CSF and in the absence of paresthesias. Again after negative aspiration, a 6 ml mixture containing 40 mg of Depo-medrol ( Preservetive Free ), and 2 ml of preservative free Normal Saline, and 2 ml of preservative free lidocaine 1% solution was injected and a washout of epidurogram was seen. Needle was withdrawn intact, skin was cleansed, and bandages were applied. COMPLICATIONS: None DISPOSITION / PLANS: The patient was placed in a supine position and transferred to the recovery area in a stable condition for observation. There was no evidence of lower extremity motor or sensory deficit after the procedure. Patient was discharged from the recovery room after meeting discharge criteria. Home discharge instructions were given to the patient by the staff. The patient was reexamined prior to discharge. The patient will schedule a follow up in the clinic in 2-4 weeks.
[2022-07-27 09:39] VITALS: BP 107/69; PULSE 81
--- NOTE | 2022-07-27 16:38 | FL ---
Intraoperative/procedural fluoroscopic services were provided. Total fluoroscopy time is 3.4 seconds with a total of 1 submitted images to PACS. Please see the operative/procedural note for further deta ils. DAP: [id number] mGym2
== END 2022-07-27 09:59 | disposition home or self-care (01) ==
LOC: ORPAIN 08:30
PROVIDERS: ATTEND Specialist
DX: M51.16 Intervertebral disc disorders with radiculopathy, lumbar region (principal); M47.26 Other spondylosis with radiculopathy, lumbar region; M48.061 Spinal stenosis, lumbar region without neurogenic claudication; Z91.048 Other nonmedicinal substance allergy status
CPT/HCPCS: 62323; J2250; J1030; J3010; Q9966

== ENCOUNTER → 2022-08-19 | Outpatient (CLI) | payer OTHER ==
[2022-08-19 09:42] VITALS: BP 131/84; PULSE 85; RESP 17; TEMP 98.1
--- NOTE | 2022-08-19 15:24 | P.PAINPG ---
PQRS Measure Charge Sheet Comment: A 57 yr old female with a history of severe and chronic LBP secondary to lumbar DDD and spondylosis with facet arthropathy without myelopathy presents today for evaluation s/p EMMY L4-L5. Pt states she experienced 50 % pain relief x 3 wks s/p procedure. Pain level is provoked at 5 /10 in intensity, constant, localized in the lumbar spine, stabbing in character w shooting towards the buttocks and LEs. Pain is provoked by any activity. Pain is alleviated with medicatins (Tyl, [place]), injections, heat, PT x 6 wks which she is currently in, chiropractic treatments in Apr 2022 which were ineffective, repositioning and rest. Oswetry Pain Scale at 39. Interventional pain procedures completed include EMMY L4-L5 Patient is currently on Tyl, [place] prn Patient denies any side effects of the medication(s), denies excessive drowsiness or sleepiness, denies suicidal ideation and reports that the current pain medication is helping to control the pain and improve activities of daily living. Patient denies any motor or sensory deficits. Patient denies any fever or night sweats, denies any change in the bowel movements or urination. Physical Examination: -Constitutional: Cooperative. Not in acute distress . - Neurologic: Cranial nerve II to XII intact. No focal neurological deficits. - Psychatric: Alert & oriented x 3. Matching mood & appropriate affect. Judgment and insight intact. - Musculoskeletal: Cervical spine: Muscle bulk/ tone/ strength in the bilateral upper extremities normal Vertebral body tenderness to palpation over Spurling test positive Distraction test positive Facet loading test positive TTP Thoracic spine Muscle bulk / tone/ strength in the bilateral paraspinal muscles normal Vertebral body tender to palpation over Facet loading test positive TTP Lumbar spine: Motor bulk/ tone/ strength lower extremities , thigh and legs : 5/5 Deep tendon reflexes : Normal Knee Jerk. Normal Ankle Jerk . Vertebral body tenderness to palpation over L4 Lee Test positive Lumbar Facet Loading Test positive Straight Leg Raise: positive at 30 degrees right side/ left side Gaenslen's Test positive Sacral spine : Severe tenderness over the Sacroiliac joint: right side / left side Range of motion: Flexion of the lumbar spine <60 degrees Range of motion: Extension of the lumbar spine <20 degrees Gaenslen's Test positive right side / left side Dinorah test: positive right side / left side Thigh Thrust Test positive right side / left side Sacral Thrust Test positive right side / left side Assessment and plan: Chronic LBP secondary to lumbar DDD, spondylosis with facet arthropathy without myelopathy Recommendation of May need a series of injections for optimal pain relief. EMMY L4-L5 #2. Risks, benefits of procedure discussed and pt verbalized understanding. Admits to anticoagulant use or medical history of diabetes. Protocol for discontinuation/ continuation of medications randee procedure discussed. Minimal anesthesia provided, if clinically indicated, consisting of Versed and Fentanyl. All questions answered. I have spent less than 30 minutes on patient care today. Dr Bai was available by phone for the evaluation of this patient. The time was used to review the medical records including relevant urine studies and Prescription history (MAPs), review of the available imaging, evaluation and examination of the patient, coordination of care with the medical staff and if applicable referring physicians, as well as creation of the medical record PQRS Narrative: Smoking Status Never smoker Hx Alcohol Use (MH) No Home Medications: Ambulatory Orders Pantoprazole Sodium [Protonix] 40 mg PO BID 09/10/13 lisinopriL [Zestril] 20 mg PO DAILY 09/10/13 metFORMIN HCL [Glucophage] 1,000 mg PO BID 09/10/13 ALPRAZolam [Xanax] 0.5 mg PO DAILY 12/26/13 Acetaminophen [Tylenol Extra Strength] 1,500 mg PO BID 11/20/21 Ascorbic Acid [Vitamin C] 500 mg PO DAILY 11/20/21 Cetirizine HCl [Zyrtec] 10 mg PO DAILY 11/20/21 Insulin Regular, Human [humulin R U-500 Kwikpen] 60 unit SQ W/SUPPER 11/20/21 Insulin Regular, Human [humulin R U-500 Kwikpen] 140 unit SQ QAM 11/20/21 Magnesium 400 mg PO DAILY 11/20/21 Metoprolol Tartrate [Lopressor] 50 mg PO BID 11/20/21 Multivitamins, Thera [Multivitamin (formulary)] 1 tab PO DAILY 11/20/21 Rosuvastatin [Crestor] 20 mg PO W/SUPPER 11/20/21 Ubidecarenone [Co Q-10] 200 mg PO DAILY 11/20/21 Lidocaine 5% Patch [Lidoderm 5% Patch] 1 patch TOPICAL DAILY PRN 14 Days #14 patch 05/03/22 Gabapentin 300 mg PO BID 07/02/22 HYDROcodone/APAP 10-325MG [[place] 10-325] 1 tab PO Q6HR PRN 07/02/22 methocarbamoL [Methocarbamol] 500 mg PO BID 07/02/22 Controlled Substance Measures - Controlled Substance Measures Is patient prescribed a controlled substance at discharge?: No
== END ==
LOC: PNWHC3 08:22
PROVIDERS: ATTEND Specialist
DX: M51.36 Other intervertebral disc degeneration, lumbar region (principal); M47.816 Spondylosis without myelopathy or radiculopathy, lumbar region; G89.29 Other chronic pain; Z91.048 Other nonmedicinal substance allergy status; Z88.2 Allergy status to sulfonamides
CPT/HCPCS: 99211

== ENCOUNTER → 2022-09-30 | Outpatient (CLI) | payer OTHER ==
[2022-09-30 09:27] VITALS: BP 145/82; PULSE 98; RESP 16; TEMP 98.3
--- NOTE | 2022-09-30 14:31 | P.PAINPG ---
PQRS Measure Charge Sheet Comment: A 57 yr old female with a history of severe and chronic LBP secondary to lumbar DDD and spondylosis with facet arthropathy without myelopathy presents today for evaluation s/p EMMY L4-L5 #2. Pt states she experienced 0 % pain relief x 3 wks s/p procedure. Pain level is provoked at 6 /10 in intensity, constant, localized in the lumbar spine, stabbing in character w shooting towards the buttocks and RLE. Pain is provoked by walking/ standing for periods of 15 min or more. Pain is alleviated with medications (Tyl, [place]), injections, heat, PT x 8-9 wks which she is currently in, chiropractic treatments in Apr 2022 which were ineffective, heat, repositioning and rest. Oswetry Pain Scale at 30. Interventional pain procedures completed include EMMY L4-L5 x2 Patient is currently on Tyl, [place] prn, Lidoderm Patient denies any side effects of the medication(s), denies excessive drowsiness or sleepiness, denies suicidal ideation and reports that the current pain medication is helping to control the pain and improve activities of daily living. Patient denies any motor or sensory deficits. Patient denies any fever or night sweats, denies any change in the bowel movements or urination. Physical Examination: -Constitutional: Cooperative. Not in acute distress . - Neurologic: Cranial nerve II to XII intact. No focal neurological deficits. - Psychatric: Alert & oriented x 3. Matching mood & appropriate affect. Judgment and insight intact. - Musculoskeletal: Cervical spine: Muscle bulk/ tone/ strength in the bilateral upper extremities normal Vertebral body tenderness to palpation over Spurling test positive Distraction test positive Facet loading test positive TTP Thoracic spine Muscle bulk / tone/ strength in the bilateral paraspinal muscles normal Vertebral body tender to palpation over Facet loading test positive TTP Lumbar spine: Motor bulk/ tone/ strength lower extremities , thigh and legs : 5/5 Deep tendon reflexes : Normal Knee Jerk. Normal Ankle Jerk . Vertebral body tenderness to palpation L5 Lee Test positive on R L5-S1 Lumbar Facet Loading Test positive Straight Leg Raise: positive at 30 degrees right side/ left side Gaenslen's Test positive Sacral spine : Severe tenderness over the Sacroiliac joint: right side / left side Range of motion: Flexion of the lumbar spine <60 degrees Range of motion: Extension of the lumbar spine <20 degrees Gaenslen's Test positive right side / left side Dinorah test: positive right side / left side Thigh Thrust Test positive right side / left side Sacral Thrust Test positive right side / left side Assessment and plan: Chronic LBP secondary to lumbar DDD, spondylosis with facet arthropathy without myelopathy Recommendation of R TFESI L5-S1 #1. May need a series of injections for optimal pain relief. Risks, benefits of procedure discussed and pt verbalized understanding. Admits to anticoagulant use or medical history of diabetes. Protocol for discontinuation/ continuation of medications randee procedure discussed. Minimal anesthesia provided, if clinically indicated, consisting of Versed and Fentanyl. All questions answered. I have spent less than 30 minutes on patient care today. Dr Bai was available by phone for the evaluation of this patient. The time was used to review the medical records including relevant urine studies and Prescription history (MAPs), review of the available imaging, evaluation and examination of the patient, coordination of care with the medical staff and if applicable referring physicians, as well as creation of the medical record PQRS Narrative: Smoking Status Never smoker Hx Alcohol Use (MH) No Home Medications: Ambulatory Orders Pantoprazole Sodium [Protonix] 40 mg PO BID 09/10/13 lisinopriL [Zestril] 20 mg PO DAILY 09/10/13 metFORMIN HCL [Glucophage] 1,000 mg PO BID 09/10/13 ALPRAZolam [Xanax] 0.5 mg PO DAILY 12/26/13 Acetaminophen [Tylenol Extra Strength] 1,500 mg PO BID 11/20/21 Ascorbic Acid [Vitamin C] 500 mg PO DAILY 11/20/21 Cetirizine HCl [Zyrtec] 10 mg PO DAILY 11/20/21 Insulin Regular, Human [humulin R U-500 Kwikpen] 60 unit SQ W/SUPPER 11/20/21 Insulin Regular, Human [humulin R U-500 Kwikpen] 140 unit SQ QAM 11/20/21 Magnesium 400 mg PO DAILY 11/20/21 Metoprolol Tartrate [Lopressor] 50 mg PO BID 11/20/21 Multivitamins, Thera [Multivitamin (formulary)] 1 tab PO DAILY 11/20/21 Rosuvastatin [Crestor] 20 mg PO W/SUPPER 11/20/21 Ubidecarenone [Co Q-10] 200 mg PO DAILY 11/20/21 Lidocaine 5% Patch [Lidoderm 5% Patch] 1 patch TOPICAL DAILY PRN 14 Days #14 patch 05/03/22 HYDROcodone/APAP 10-325MG [[place] 10-325] 1 tab PO Q6HR PRN 07/02/22 Controlled Substance Measures - Controlled Substance Measures Is patient prescribed a controlled substance at discharge?: No
== END ==
LOC: PNWHC3 08:38
PROVIDERS: ATTEND Specialist
DX: M51.37 Other intervertebral disc degeneration, lumbosacral region (principal); M47.817 Spondylosis without myelopathy or radiculopathy, lumbosacral region; G89.29 Other chronic pain; Z91.048 Other nonmedicinal substance allergy status; Z88.8 Allergy status to other drugs, medicaments and biological substances
CPT/HCPCS: 99211

== ENCOUNTER 2022-11-09 06:51 | Day surgery (SDC) | payer OTHER ==
[2022-11-05 15:27] VITALS: BMI 47.0
[2022-11-09] MEDS ORDERED: LACTATED RINGERS 1,000 ML IV SCH (07:20)
[2022-11-09 07:21] VITALS: PULSE 86; TEMP 97.8
[2022-11-09 07:32] LABS: Glucose,Whole Blood 204 mg/dL (70-110)
[2022-11-09] MEDS ORDERED: methylPREDNISolone ACETATE 40 MG/ML 1 ML VIAL ONE (07:47)
[2022-11-09] MEDS ORDERED: IOPAMIDOL M200 10 ML VIAL ONE (07:47)
--- NOTE | 2022-11-09 07:55 | P.PCN ---
Date of Procedure: 11/09/22 Procedure(s) Performed: PREOPERATIVE DIAGNOSIS: 1-Lumbar radiculopathy . 2-lumbar degenerative disc disease. 3-lumbar spondylosis with lumbar facet arthropathy without myelopathy POSTOPERATIVE DIAGNOSIS: 1-lumbar radiculopathy. 2-lumbar degenerative disc disease. 3-lumbar spondylosis with facet arthropathy without myelopathy PROCEDURE 1. Transforaminal epidural steroid injection under fluoroscopic guidance at right L5-S1 level. (Fluoroscopy images stored on file in the radiology Department ) 2. Lumbar epidurogram . ANESTHESIA: Local with 1% lidocaine 3 ml. EBL: Minimal PROCEDURE INDICATION: The patient with low back pain and radiculopathy symptoms unresponsive to conservative treatment. PROCEDURE DESCRIPTION / TECHNIQUE: The patient was seen and identified in the preoperative area. Risks, benefits, complications, and alternatives were discussed with the patient. The patient agreed to proceed with the procedure and signed the consent. IV was started, and vital signs were stable. Patient was taken to the OR and time out was completed. The patient was placed in the prone position on procedure table and a pillow was placed under the abdomen to reduce lumbar lordosis. The lumbosacral area was prepped and draped in the usual sterile fashion. Critical pause was taken. Vital signs were closely monitored during the procedure. Using oblique fluoroscopy, the chin of the ``Gilbert dog at Right L5-S1 level was identified, and the skin and deeper tissues just below was localized with 1% lidocaine. Subsequently, a 22-gauge 5-inch spinal needle was advanced under a tunneled view fluoroscopic guidance just underneath the chin of the ``Gilbert dog at the right L5-S1 Under lateral fluoroscopy, the needle was then advanced to the posterior border of the interforaminal space. After negative aspiration of CSF and blood and with no paresthesias, 1 mL Isovue 200 contrast dye was injected excellent epidurogram and outlining of the nerve root Subsequently, 3 mL of block solution containing 40 mg Depo-Medrol and 2 mL of 0.9% normal saline PF was injected. Needle was removed . At the end of the procedure, skin was cleansed, and bandages were applied. COMPLICATIONS:none DISPOSITION / PLANS: The patient was placed in a supine position and transferred to the recovery area in a stable condition for observation. There was no evidence of lower extremity motor or sensory deficit after the procedure. Patient was discharged from the recovery room after meeting discharge criteria. Home discharge instructions were given to the patient by the staff. The patient was reexamined prior to discharge.
[2022-11-09 08:05] VITALS: BP 123/75; RESP 20
[2022-11-09 08:13] LABS: Glucose,Whole Blood 193 mg/dL (70-110)
--- NOTE | 2022-11-09 09:04 | FL ---
Fluoroscopy INDICATION: Pain FINDINGS: Fluoroscopy time: 5 seconds. Total dose area product (DAP) in uGy*m?, mGy*cm? (or similar): 0.26918 Images obtained: 1. IMPRESSION: 1. Documentation of fluoroscopy.
== END 2022-11-09 08:16 ==
LOC: ORPAIN 06:51
PROVIDERS: ATTEND Specialist
DX: M51.16 Intervertebral disc disorders with radiculopathy, lumbar region (principal); M47.26 Other spondylosis with radiculopathy, lumbar region; E11.9 Type 2 diabetes mellitus without complications; Z88.8 Allergy status to other drugs, medicaments and biological substances; Z79.84 Long term (current) use of oral hypoglycemic drugs
CPT/HCPCS: 64483; J1030; Q9966

== ENCOUNTER → 2022-11-26 | Outpatient (CLI) | payer OTHER ==
[2022-11-26 09:06] LABS: Amorphous Sediment,Urine Rare /hpf; Appearance,Urine Cloudy (Clear); Bacteria,Urine Rare /hpf; Bilirubin,Urine Negative (Negative); Blood,Urine Negative (Negative); Calcium Oxalate Crystals,Urine Many /hpf; Color,Urine Yellow; Glucose,Urine (UA) Negative (Negative); Hyaline Casts,Urine 1 /lpf (0-2); Ketones,Urine Negative (Negative); Leukocyte Esterase,Urine Large (Negative); Mucus,Urine Moderate /hpf; Nitrite,Urine Negative (Negative); Protein,Urine Trace (Negative); RBC,Urine 5 /hpf (0-5); Squamous Epithelial Cell,Urine 13 /hpf (0-4); WBC,Urine 31 /hpf (0-5)
[2022-11-26 11:08] LABS: Basophils # (A) 0.01 X 10*3/uL (0.00-0.10); Basophils % (A) 0.3 %; Eosinophils # (A) 0.02 X 10*3/uL (0.04-0.35); Eosinophils % (A) 0.6 %; HCT 39.9 % (37.2-46.3); HGB 12.9 d/dL (12.0-15.0); Immature Grans, Automated 0 %; Lymphocytes % (A) 31.4 %; MCH 31.2 pg (27.0-32.0); MCHC 32.3 d/dL (32.0-37.0); MCV 96.4 FL (80.0-97.0); Mean Platelet Volume 10.2 FL (9.5-12.2); Monocytes # (A) 0.22 X 10*3/uL (0.20-1.00); Monocytes % (A) 6.3 %; NRBC Per 100 WBC 0 X 10*3/uL (0.00-0.01); Neutrophils # (A) 2.15 X 10*3/uL (1.80-7.70); Neutrophils % (A) 61.4 %; Platelet Count 105 X 10*3/uL (140-440); RBC 4.14 X 10*6/uL (4.10-5.20); RDW 13.1 % (11.5-14.5)
[2022-11-26 14:29] LABS: ALT 33 U/L (8-44); AST 41 U/L (13-35); Albumin/Globulin Ratio 1.48 Ratio (1.60-3.17); Alkaline Phosphatase 43 U/L (41-126); Blood Urea Nitrogen 16.5 mg/dL (9.0-27.0); Calcium 9.3 mg/dL (8.7-10.3); Carbon Dioxide 22.9 mmol/L (21.6-31.8); Chloride 106 mmol/L (96-109); Chol/HDL Ratio 2.83 Ratio; Globulin 2.7 d/dL (1.6-3.3); Glucose 86 mg/dL (70-110); Iron 75 UG/DL (50-170); LDL Cholesterol,Calculated 64.8 mg/dL (0.0-131.0); Magnesium 1.5 mg/dL (1.5-2.4); Potassium 3.8 mmol/L (3.5-5.5); Sodium 144 mmol/L (135-145); Total Bilirubin 0.5 mg/dL (0.3-1.2); Total Iron Binding Capacity 375 UG/DL (228-460); Total Protein 6.7 d/dL (6.2-8.2); Uric Acid 3.9 mg/dL (2.9-7.7)
== END | disposition home or self-care (01) ==
LOC: LABWHC1 07:07
PROVIDERS: ATTEND Internal Medicine
DX: I10 Essential (primary) hypertension (principal); E11.65 Type 2 diabetes mellitus with hyperglycemia; E78.2 Mixed hyperlipidemia; L65.9 Nonscarring hair loss, unspecified
CPT/HCPCS: 36415; 80053; 80061; 81001; 82043; 82570; 82607; 82728; 82746; 83036; 83540; 83550; 83735; 84443; 84550; 85025; 87086

== ENCOUNTER → 2022-12-01 | Outpatient (CLI) | payer OTHER ==
[2022-12-01 09:00] VITALS: BP 106/64; PULSE 94; RESP 16; TEMP 97.8
--- NOTE | 2022-12-01 14:43 | P.PAINPG ---
Objective - Vital Signs Vital signs: Intake & Output 11/30/22 12/01/22 12/01/22 18:59 06:59 18:59 Weight 136.078 kg PQRS Measure Charge Sheet Comment: A 57 yr old female with a history of severe and chronic LBP secondary to lumbar DDD and spondylosis with facet arthropathy without myelopathy presents today for evaluation s/p R TFESI L5-S1 #1. Pt states she experienced 95 % pain relief x 3 wks s/p procedure. Pain level is provoked at 0 /10 in intensity. Pain is alleviated with injections, medications (Tyl, Sperry), injections, heat, PT x 8-9 wks which she is currently in, chiropractic treatments in Apr 2022 which were ineffective, heat, repositioning and rest. Interventional pain procedures completed include EMMY L4-L5 x2, R TFESI L5-S1 x1 Patient is currently on Tyl, Sperry prn, Lidoderm Patient denies any side effects of the medication(s), denies excessive drowsiness or sleepiness, denies suicidal ideation and reports that the current pain medication is helping to control the pain and improve activities of daily living. Patient denies any motor or sensory deficits. Patient denies any fever or night sweats, denies any change in the bowel movements or urination. Physical Examination: -Constitutional: Cooperative. Not in acute distress . - Neurologic: Cranial nerve II to XII intact. No focal neurological deficits. - Psychatric: Alert & oriented x 3. Matching mood & appropriate affect. Judgment and insight intact. - Musculoskeletal: Cervical spine: Muscle bulk/ tone/ strength in the bilateral upper extremities normal Vertebral body tenderness to palpation over Spurling test positive Distraction test positive Facet loading test positive TTP Thoracic spine Muscle bulk / tone/ strength in the bilateral paraspinal muscles normal Vertebral body tender to palpation over Facet loading test positive TTP Lumbar spine: Motor bulk/ tone/ strength lower extremities , thigh and legs : 5/5 Deep tendon reflexes : Normal Knee Jerk. Normal Ankle Jerk . Vertebral body tenderness to palpation L5 Lee Test positive on R L5-S1 Lumbar Facet Loading Test positive Straight Leg Raise: positive at 30 degrees right side/ left side Gaenslen's Test positive Sacral spine : Severe tenderness over the Sacroiliac joint: right side / left side Range of motion: Flexion of the lumbar spine <60 degrees Range of motion: Extension of the lumbar spine <20 degrees Gaenslen's Test positive right side / left side Dinorah test: positive right side / left side Thigh Thrust Test positive right side / left side Sacral Thrust Test positive right side / left side Assessment and plan: Chronic LBP secondary to lumbar DDD, spondylosis with facet arthropathy without myelopathy Will manage residual onset of pain and may RTC on an as needed basis. All questions answered. I have spent less than 30 minutes on patient care today. Dr Bai was available by phone for the evaluation of this patient. The time was used to review the medical records including relevant urine studies and Prescription history (MAPs), review of the available imaging, evaluation and examination of the patient, coordination of care with the medical staff and if applicable referring physicians, as well as creation of the medical record PQRS Narrative: Smoking Status Never smoker Hx Alcohol Use (MH) No Home Medications: Ambulatory Orders Pantoprazole Sodium [Protonix] 40 mg PO BID 09/10/13 lisinopriL [Zestril] 20 mg PO DAILY 09/10/13 metFORMIN HCL [Glucophage] 1,000 mg PO BID 09/10/13 ALPRAZolam [Xanax] 0.5 mg PO DAILY 12/26/13 Acetaminophen [Tylenol Extra Strength] 1,500 mg PO BID 11/20/21 Ascorbic Acid [Vitamin C] 500 mg PO DAILY 11/20/21 Cetirizine HCl [Zyrtec] 10 mg PO DAILY 11/20/21 Insulin Regular, Human [humulin R U-500 Kwikpen] 60 unit SQ W/SUPPER 11/20/21 Insulin Regular, Human [humulin R U-500 Kwikpen] 140 unit SQ QAM 11/20/21 Magnesium 400 mg PO DAILY 11/20/21 Metoprolol Tartrate [Lopressor] 50 mg PO BID 11/20/21 Multivitamins, Thera [Multivitamin (formulary)] 1 tab PO DAILY 11/20/21 Rosuvastatin [Crestor] 20 mg PO W/SUPPER 11/20/21 Ubidecarenone [Co Q-10] 200 mg PO DAILY 11/20/21 Lidocaine 5% Patch [Lidoderm 5% Patch] 1 patch TOPICAL DAILY PRN 14 Days #14 patch 05/03/22 HYDROcodone/APAP 10-325MG [Sperry 10-325] 1 tab PO Q6HR PRN 07/02/22 Controlled Substance Measures - Controlled Substance Measures Is patient prescribed a controlled substance at discharge?: No
== END ==
LOC: PNWHC3 08:25
PROVIDERS: ATTEND Specialist
DX: M51.36 Other intervertebral disc degeneration, lumbar region (principal); M47.816 Spondylosis without myelopathy or radiculopathy, lumbar region; G89.29 Other chronic pain; Z91.048 Other nonmedicinal substance allergy status; Z88.8 Allergy status to other drugs, medicaments and biological substances
CPT/HCPCS: 99211

== ENCOUNTER → 2023-02-15 | Outpatient (CLI) | payer OTHER ==
--- NOTE | 2023-02-16 10:11 | MM ---
Reason for Exam: Screening (asymptomatic). Last screening mammogram was performed 12 month(s) ago. Patient History: Menarche at age 12. Patient has no children. Postmenopausal. Risk Values: Lyly 5 year model risk: 1.4%. NCI Lifetime model risk: 8.7%. Prior Study Comparison: 09/07/2019 Bilateral Screening Mammogram, [facility]. 01/23/2021 Bilateral Screening Mammogram, [facility]. 02/09/2022 Bilateral MG screening mammo w CAD, [facility]. Tissue Density: The breast tissue is almost entirely fat. Findings: Analyzed By CAD. There is no suspicious group of microcalcifications or new suspicious mass. Overall Assessment: Negative, BI-RAD 1 Management: Screening Mammogram of both breasts in [address] [facility] will attempt to contact patient to return for supplemental views and ultrasound if indicated. Patient should continue monthly self-breast exams. A clinical breast exam by your physician is recommended on an annual basis. This exam should not preclude additional follow-up of suspicious palpable abnormalities. Note on Lyly scores and lifetime risk: 1. A Lyly score greater than 3% is considered moderate risk. If this is the case, consider specialist referral to assess eligibility for a risk reducing agent. 2. If overall lifetime risk for the development of breast cancer is 20% or higher, the patient may qualify for future screening with alternating mammogram and breast MRI. Electronically signed and approved by: Joseph Crandall DO
== END | disposition home or self-care (01) ==
LOC: RADMAMWWP 15:07
PROVIDERS: ATTEND Internal Medicine
DX: Z12.31 Encounter for screening mammogram for malignant neoplasm of breast (principal); Z78.0 Asymptomatic menopausal state
CPT/HCPCS: 77063; 77067

== ENCOUNTER → 2023-06-11 | Outpatient (CLI) | payer OTHER ==
[2023-06-11 14:17] LABS: Basophils # (A) 0.01 X 10*3/uL (0.00-0.10); Basophils % (A) 0.2 %; Eosinophils # (A) 0.01 X 10*3/uL (0.04-0.35); Eosinophils % (A) 0.2 %; HGB 13.9 g/dL (12.0-15.0); Lymphocytes # (A) 1.51 X 10*3/uL (0.90-5.00); Lymphocytes % (A) 34.5 %; MCH 30.9 pg (27.0-32.0); MCHC 33.1 g/dL (32.0-37.0); MCV 93.3 FL (80.0-97.0); Mean Platelet Volume 10.1 FL (9.5-12.2); Monocytes # (A) 0.25 X 10*3/uL (0.20-1.00); Monocytes % (A) 5.7 %; NRBC Per 100 WBC 0 X 10*3/uL (0.00-0.01); Neutrophils # (A) 2.59 X 10*3/uL (1.80-7.70); Neutrophils % (A) 59.2 %; Platelet Count 128 X 10*3/uL (140-440); RDW 13.3 % (11.5-14.5); WBC 4.38 X 10*3/uL (4.50-10.00)
[2023-06-11 16:03] LABS: ALT 44 U/L (8-44); AST 60 U/L (13-35); Albumin 4.6 g/dL (3.8-4.9); Albumin/Globulin Ratio 1.59 Ratio (1.60-3.17); Alkaline Phosphatase 46 U/L (41-126); Blood Urea Nitrogen 15.4 mg/dL (9.0-27.0); Carbon Dioxide 19.4 mmol/L (21.6-31.8); Chloride 105 mmol/L (96-109); Chol/HDL Ratio 2.64 Ratio; Globulin 2.9 g/dL (1.6-3.3); Glucose 120 mg/dL (70-110); LDL Cholesterol,Calculated 42.6 mg/dL (0.0-131.0); Magnesium 1.5 mg/dL (1.5-2.4); Sodium 140 mmol/L (135-145); Total Bilirubin 0.5 mg/dL (0.3-1.2); Total Protein 7.5 g/dL (6.2-8.2)
== END | disposition home or self-care (01) ==
LOC: LABWHC1 08:16
PROVIDERS: ATTEND Internal Medicine
DX: E78.2 Mixed hyperlipidemia (principal); E11.65 Type 2 diabetes mellitus with hyperglycemia; I10 Essential (primary) hypertension
CPT/HCPCS: 36415; 80053; 80061; 82043; 82570; 82607; 82746; 83036; 83735; 84443; 85025

== ENCOUNTER → 2023-09-20 | Outpatient (CLI) | payer OTHER ==
--- NOTE | 2023-09-21 09:25 | BD ---
EXAMINATION TYPE: Axial Bone Density DATE OF EXAM: 09/20/2023 CLINICAL HISTORY: 58 years old Female. ICD-10 CODE: M85.851 DISRD OF BONE DENSITY AND STRUCTURE Height: 5 ft 5 in Weight: 310 FRAX RISK QUESTIONS: Alcohol (3 or more units per day): no Family History (Parent hip fracture): no Glucocorticoids (More than 3mos): no (Ex: prednisone, prednisolone, methylprednisolone, dexamethasone, and hydrocortisone). History of Fracture in Adulthood: no Secondary Osteoporosis: 1. Type 1 Diabetes: type 2 2. Hyperthyroidism: no 3. Menopause before 45: no 4. Malnutrition: no 5. Chronic liver disease: no Rheumatoid Arthritis: no Current Tobacco Use: no RISK FACTORS HISTORY OF: Surgery to Spine/Hip(right/left)/Wrist (right/left): laminectomy When: 31 years ago MEDICATIONS: Thyroid Medications: none Osteoporosis Medications: none EXAM MEASUREMENTS: Bone mineral densitometry was performed using the I'm[employer] System. Bone mineral density as measured about the Lumbar spine is: ----- L1-L4(G/cm2): 1.555 T Score Values are as follows: ----- L1: 0.3 ----- L2: 2.2 ----- L3: 4.1 ----- L4: 5.2 ----- L1-L4: 3.1 Z Score Values are as follows: ----- L1: 0.2 ----- L2: 2.1 ----- L3: 4.0 ----- L4: 5.0 ----- L1-L4: 3.0 baseline Bone mineral density about the R hip (g/cm2): 1.007 Bone mineral density about the L hip (g/cm2): 1.008 T Score values are as follows: -----R Neck: -0.2 -----L Neck: -0.2 -----R Total: 1.4 -----L Total: 1.3 Z Score values are as follows: -----R Neck: 0.2 -----L Neck: 0.2 -----R Total: 1.4 -----L Total: 1.3 baseline FRAX%s: The graph provided illustrates a 4.8 % chance for a major osteoporotic fx and a 0.1 % chance for the hips probability for fx in 10 years time. IMPRESSION: Normal (Values between +1 and -1 indicate normal bone mass). Consider repeating this study in 5 year s or sooner if there is some new clinical indication. NOTE: T-SCORE=SD OF THE YOUNG ADULT MEAN.
== END | disposition home or self-care (01) ==
LOC: RADBDWWP 15:27
PROVIDERS: ATTEND Internal Medicine
DX: M85.851 Other specified disorders of bone density and structure, right thigh (principal); E10.9 Type 1 diabetes mellitus without complications
CPT/HCPCS: 77080

== ENCOUNTER → 2023-11-25 | Outpatient (CLI) | payer OTHER ==
[2023-11-25 15:35] LABS: Basophils # (A) 0.01 X 10*3/uL (0.00-0.10); Basophils % (A) 0.3 %; Eosinophils # (A) 0.02 X 10*3/uL (0.04-0.35); Eosinophils % (A) 0.6 %; HGB 12.8 g/dL (12.0-15.0); Lymphocytes # (A) 1.03 X 10*3/uL (0.90-5.00); Lymphocytes % (A) 29.8 %; MCHC 32.8 g/dL (32.0-37.0); MCV 94.4 FL (80.0-97.0); Mean Platelet Volume 10.7 FL (9.5-12.2); Monocytes % (A) 5.8 %; NRBC Per 100 WBC 0 X 10*3/uL (0.00-0.01); Neutrophils # (A) 2.19 X 10*3/uL (1.80-7.70); Neutrophils % (A) 63.2 %; Platelet Count 109 X 10*3/uL (140-440); RBC 4.13 X 10*6/uL (4.10-5.20); RDW 13.2 % (11.5-14.5); WBC 3.46 X 10*3/uL (4.50-10.00)
[2023-11-25 16:06] LABS: ALT 32 U/L (8-44); AST 43 U/L (13-35); Albumin 3.9 g/dL (3.8-4.9); Albumin/Globulin Ratio 1.39 Ratio (1.60-3.17); Alkaline Phosphatase 52 U/L (41-126); BUN/Creat Ratio 19.33 Ratio (12.00-20.00); Blood Urea Nitrogen 11.6 mg/dL (9.0-27.0); Calcium 8.9 mg/dL (8.7-10.3); Carbon Dioxide 22.1 mmol/L (21.6-31.8); Chloride 103 mmol/L (96-109); Chol/HDL Ratio 3.39 Ratio; Globulin 2.8 g/dL (1.6-3.3); Glucose 259 mg/dL (70-110); LDL Cholesterol,Calculated 55.5 mg/dL (0.0-131.0); Magnesium 1.4 mg/dL (1.5-2.4); Potassium 4.1 mmol/L (3.5-5.5); Sodium 137 mmol/L (135-145); Total Bilirubin 0.5 mg/dL (0.3-1.2); Total Protein 6.7 g/dL (6.2-8.2); Uric Acid 3.4 mg/dL (2.9-7.7)
[2023-11-25 16:42] LABS: Appearance,Urine Cloudy (Clear); Bacteria,Urine Trace (None Seen); Bilirubin,Urine Negative (Negative); Blood,Urine Negative (Negative); Color,Urine Yellow (Yellow); Ketones,Urine Trace (Negative); Nitrite,Urine Negative (Negative); PH, Urine 5.5; Specific Gravity,Urine 1.034 (1.001-1.030); Urobilinogen,Urine 0.2
== END | disposition home or self-care (01) ==
LOC: LABWHC1 08:27
PROVIDERS: ATTEND Internal Medicine
DX: I10 Essential (primary) hypertension (principal); E78.2 Mixed hyperlipidemia; E11.65 Type 2 diabetes mellitus with hyperglycemia; M85.851 Other specified disorders of bone density and structure, right thigh
CPT/HCPCS: 36415; 80053; 80061; 81001; 82043; 82306; 82570; 83036; 83735; 84443; 84550; 85025

== ENCOUNTER → 2024-05-12 | Outpatient (CLI) | payer OTHER ==
[2024-05-12 13:14] LABS: Basophils # (A) 0.01 X 10*3/uL (0.00-0.10); Basophils % (A) 0.3 %; Eosinophils # (A) 0.03 X 10*3/uL (0.04-0.35); Eosinophils % (A) 0.9 %; HCT 41.1 % (37.2-46.3); HGB 13.2 g/dL (12.0-15.0); Lymphocytes # (A) 1.17 X 10*3/uL (0.90-5.00); Lymphocytes % (A) 36.7 %; MCH 30.8 pg (27.0-32.0); MCHC 32.1 g/dL (32.0-37.0); MCV 95.8 FL (80.0-97.0); Monocytes # (A) 0.24 X 10*3/uL (0.20-1.00); Monocytes % (A) 7.5 %; NRBC Per 100 WBC 0 X 10*3/uL (0.00-0.01); Neutrophils # (A) 1.73 X 10*3/uL (1.80-7.70); Neutrophils % (A) 54.3 %; Platelet Count 111 X 10*3/uL (140-440); RBC 4.29 X 10*6/uL (4.10-5.20); RDW 13.4 % (11.5-14.5); WBC 3.19 X 10*3/uL (4.50-10.00)
[2024-05-12 13:54] LABS: Urine Alcohol Negative (Negative)
[2024-05-12 13:55] LABS: Urine Barbiturate Negative (Negative); Urine Cocaine Negative (Negative); Urine Methadone Negative (Negative); Urine Opiates Negative (Negative); Urine Phencyclidine Negative (Negative)
[2024-05-12 14:09] LABS: Chol/HDL Ratio 3.54 Ratio; LDL Cholesterol,Calculated 55.8 mg/dL (0.0-131.0); Magnesium 1.7 mg/dL (1.5-2.4); Uric Acid 3.7 mg/dL (2.9-7.7)
[2024-05-12 15:01] LABS: Appearance,Urine Cloudy (Clear); Bacteria,Urine 2+ (None Seen); Bilirubin,Urine Small (Negative); Blood,Urine Negative (Negative); Calcium Oxalate Crystals,Urine Present (None Seen); Color,Urine Dark Yellow (Yellow); Ketones,Urine Trace (Negative); Nitrite,Urine Negative (Negative); Specific Gravity,Urine >1.035 (1.001-1.030)
[2024-05-12 15:03] LABS: BUN/Creat Ratio 21.88 Ratio (12.00-20.00); Blood Urea Nitrogen 17.5 mg/dL (9.0-27.0); Carbon Dioxide 22.1 mmol/L (21.6-31.8); Chloride 102 mmol/L (96-109); Creatine Kinase 88 U/L (26-186); Glucose 189 mg/dL (70-110); Potassium 5.7 mmol/L (3.5-5.5); Sodium 136 mmol/L (135-145)
[2024-05-12 15:04] LABS: ALT 33 U/L (8-44); AST 61 U/L (13-35); Albumin/Globulin Ratio 1.29 Ratio (1.60-3.17); Alkaline Phosphatase 49 U/L (41-126); Calcium 9.2 mg/dL (8.7-10.3); Globulin 3.1 g/dL (1.6-3.3); Total Bilirubin 0.4 mg/dL (0.3-1.2); Total Protein 7.1 g/dL (6.2-8.2)
== END | disposition home or self-care (01) ==
LOC: LABWHC1 08:09
PROVIDERS: ATTEND Internal Medicine
DX: I10 Essential (primary) hypertension (principal); E11.9 Type 2 diabetes mellitus without complications; E78.2 Mixed hyperlipidemia; M85.851 Other specified disorders of bone density and structure, right thigh; M62.461 Contracture of muscle, right lower leg; M62.462 Contracture of muscle, left lower leg; Z79.4 Long term (current) use of insulin; Z79.899 Other long term (current) drug therapy
CPT/HCPCS: 36415; 80053; 80061; 80306; 81001; 82085; 82306; 82550; 83036; 83735; 84443; 84550; 85025

== ENCOUNTER → 2024-05-14 | Outpatient (CLI) | payer OTHER ==
--- NOTE | 2024-05-14 16:27 | US ---
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 SIDE PERFORMED: Bilateral FINDINGS: VESSELS IMAGED: Common Femoral Vein Deep Femoral Vein Greater Saphenous Vein * Femoral Vein Popliteal Vein Small Saphenous Vein * Proximal Calf Veins (* superficial vessels) Right Leg: Negative for DVT, Color Doppler imaging shows patency of the vessels. Spectral waveforms are within normal limits. Left Leg: Negative for DVT, Color Doppler imaging shows patency of the vessels. Spectral waveforms a re within normal limits. IMPRESSION: No ultrasound evidence for deep venous thrombosis. [facility], , 05/14/2024 4:24 PM
== END | disposition home or self-care (01) ==
LOC: RADUSWWP 15:27
PROVIDERS: ATTEND Internal Medicine
DX: M62.462 Contracture of muscle, left lower leg (principal); M62.461 Contracture of muscle, right lower leg
CPT/HCPCS: 93970